=== PATIENT | male | born 1990 | race Caucasian/White ===

== ENCOUNTER 2024-05-01 09:43 | Emergency (ER) | payer OTHER ==
[~2024-05-01] VITALS: Ht 190.5 cm; Wt 104.3 kg
[2024-05-01] MEDS ORDERED: NAPR-1009 PO (10:11)
[2024-05-01] MEDS ORDERED: DIAZ2TAB PO (10:11)
[2024-05-01] MEDS ORDERED: KETOROLAC TROMETHAMINE INJ 30 MG/ML VIAL ONE (10:23)
[2024-05-01] MEDS: KETOROLAC TROMETHAMINE INJ 30 MG/ML VIAL IM ONE (10:27)
[2024-05-01 10:36] VITALS: BP 121/64; TEMP 98.1; O2SAT 100
== END 2024-05-01 10:36 | disposition home or self-care (01) ==
LOC: ER 09:51
DX: M54.59 Other low back pain (principal); E78.00 Pure hypercholesterolemia, unspecified; Z88.0 Allergy status to penicillin
CPT/HCPCS: 99283; 96372; J1885